=== PATIENT | female | born 1970 | race Hispanic/Latino ===

== ENCOUNTER 2023-09-25 21:46 | Emergency (ER) | payer BC ==
[~2023-09-25] VITALS: Ht 154.9 cm; Wt 79.4 kg
[2023-09-25] MEDS: ACETAMINOPHEN 500 MG TABLET PO ONE (22:30)
[2023-09-25 23:08] LABS: APPEARANCE,URINE CLOUDY (CLEAR); BILIRUBIN,URINE NEGATIVE (NEGATIVE); COLOR,URINE YELLOW (YELLOW); GLUCOSE, URINE (UA) NEGATIVE (NEGATIVE); KETONES,URINE NEGATIVE (NEGATIVE); LEUKOCYTE ESTERASE ,URINE 25 Leu/uL (NEGATIVE); NITRATE,URINE NEGATIVE (NEGATIVE); PROTEIN,URINE 100 mg/dL (NEGATIVE)
[2023-09-25 23:17] LABS: RAPID GROUP A STREP negative (NEGATIVE)
[2023-09-25 23:23] LABS: INFLUENZA TYPE A NEGATIVE FOR TYPE A (NEG); INFLUENZA TYPE B NEGATIVE FOR TYPE B (NEG); SARS-CoV-2, RNA, NAAT NEGATIVE SARS CoV-2 (NEGATIVE)
[2023-09-25 23:28] LABS: RBC,URINE 0-1 /HPF (0-1)
[2023-09-25 23:30] LABS: BACTERIA,URINE Rare /HPF (None Seen); SQUAMOUS EPITHELIAL CELL,UR Rare /HPF (0-2)
[2023-09-25 23:31] LABS: FINE GRANULAR CASTS,URINE 0-2 /LPF (None Seen)
[2023-09-25 23:34] LABS: BASOPHILS # (AUTO) 0.01 K/uL (0.00-0.20); BASOPHILS % (AUTO) 0.2 % (0.0-5.0); HEMATOCRIT 24.4 % (36-48); IMMATURE GRANULOCYTE ABSOLUTE 0.14 K/uL (0-1); LYMPHOCYTES # (AUTO) 0.6 K/uL (1.0-4.8); LYMPHOCYTES % (AUTO) 11.9 % (21.0-51.0); MEAN CORPUSCULAR VOLUME 51.8 fL (79-99); MONOCYTES # (AUTO) 0.2 K/uL (0.1-1.0); MONOCYTES % (AUTO) 4.3 % (3.0-13.0); NEUTROPHILS # (AUTO) 4.3 K/uL (1.8-7.7); PLATELET COUNT (AUTO) 110 K/uL (130-400); RED BLOOD CELL COUNT(AUTO) 4.71 MIL/uL (4.00-5.50); RED CELL DISTRIBUTION WIDTH 23.9 % (11.0-15.5); WHITE BLOOD COUNT (AUTO) 5.3 K/uL (4.8-10.8)
[2023-09-25 23:47] LABS: HCG,QUALITATIVE URINE NEGATIVE (NEGATIVE)
[2023-09-25 23:52] LABS: ALBUMIN 3.3 g/dL (3.5-5.0); BILIRUBIN,TOTAL 0.8 mg/dL (0.2-1.0); CREATININE 0.9 mg/dL (0.5-1.0); POTASSIUM 3.1 mmol/L (3.5-5.1); TOTAL PROTEIN, SERUM 7.1 g/dL (6.0-8.3)
[2023-09-26] MEDS: POTASSIUM BICARB/CIT AC 25 MEQ TABLET.EFF PO ONE (01:09)
[2023-09-26 07:00] LABS: HEMATOCRIT 29.1 % (36-48)
[2023-09-26 07:26] VITALS: BP 95/52; PULSE 102; RESP 18; O2SAT 99
[2023-09-26] MEDS ORDERED: CEPH500C2 PO (08:02)
[2023-09-26] MEDS ORDERED: ACET-66 PO (08:02)
[2023-09-26] MEDS ORDERED: FERR324T4 PO (08:02)
== END 2023-09-26 08:40 | disposition home or self-care (01) ==
LOC: EDH 21:46
DX: D64.9 Anemia, unspecified (principal); N39.0 Urinary tract infection, site not specified; Z20.822 Contact with and (suspected) exposure to COVID-19
CPT/HCPCS: 99285; 36430; 87635; 80053; 85025; 86850; 86900; 86901; 86923; 87040 ×2; 87088; 87880; 87804 ×2; 83605; 81001 ×2; 81025; 36415 ×2; 93005; 85014; 85018; P9016

== ENCOUNTER 2023-09-28 11:52 | Inpatient (IN) | payer BC ==
[~2023-09-28] VITALS: Ht 154.9 cm; Wt 87.1 kg
[~2023-09-28 11:52] MED LIST: ACET-66 PO; CEPH500C2 PO; FERR324T4 PO
[2023-09-28 12:46] LABS: BASOPHILS # (AUTO) 0.01 K/uL (0.00-0.20); BASOPHILS % (AUTO) 0.1 % (0.0-5.0); HEMATOCRIT 28.3 % (36-48); IMMATURE GRANULOCYTE ABSOLUTE 0.13 K/uL (0-1); LYMPHOCYTES % (AUTO) 12.1 % (21.0-51.0); MEAN CORPUSCULAR HEMOGLOBIN 15.6 pg (27.0-33.0); MEAN CORPUSCULAR HGB CONC 29.7 g/dL (32.0-36.0); MEAN CORPUSCULAR VOLUME 52.7 fL (79-99); MONOCYTES # (AUTO) 0.2 K/uL (0.1-1.0); NEUTROPHILS # (AUTO) 7.3 K/uL (1.8-7.7); NEUTROPHILS % (AUTO) 84.3 % (40.0-77.0); NUCLEATED RED BLOOD CELLS 0.2 % (0.0-0.19); PLATELET COUNT (AUTO) 88 K/uL (130-400); RED BLOOD CELL COUNT(AUTO) 5.37 MIL/uL (4.00-5.50); RED CELL DISTRIBUTION WIDTH 27.4 % (11.0-15.5); WHITE BLOOD COUNT (AUTO) 8.6 K/uL (4.8-10.8)
[2023-09-28] MEDS: MORPHINE 2 MG SYG IVP ONE (12:54)
[2023-09-28] MEDS: ONDANSETRON 4MG INJ IVP ONE (12:54)
[2023-09-28 12:55] LABS: INR 1.04 (0.85-1.15); PROTHROMBIN TIME 12.2 SEC (9.6-11.6)
[2023-09-28 12:56] LABS: CREATININE 1.5 mg/dL (0.5-1.0); PARTIAL THROMBOPLASTIN TIME 37.7 SEC (26.3-35.5); POTASSIUM 3.7 mmol/L (3.5-5.1)
[2023-09-28 13:00] LABS: ALBUMIN 2.7 g/dL (3.5-5.0); BILIRUBIN,TOTAL 2.6 mg/dL (0.2-1.0); TOTAL PROTEIN, SERUM 6.8 g/dL (6.0-8.3)
[2023-09-28] MEDS: 0.9%NACL 1000ML 1,000 ML IV SCH ×2 (14:03→19:54)
[2023-09-28] MEDS ORDERED: DOXYCYCLINE 100MG+NS 250ML 250 ML IV SCH (19:00)
[2023-09-28 19:25] LABS: % IRON SATURATION 3.7 % (22-44)
[2023-09-28] MEDS ORDERED: VANCOMYCIN PROTOCOL PER PHARMACY IV SCH (19:30)
[2023-09-28] MEDS ORDERED: RENAL DOSE IV SCH (19:30)
[2023-09-28 19:45] LABS: HIV 1&2 ANTIBODY Non-Reactive (Negative)
[2023-09-28 19:46] LABS: HIV-1 p24 Antigen Non-Reactive (Negative)
[2023-09-28 19:47] LABS: SARS-CoV-2, RNA, NAAT NEGATIVE SARS CoV-2 (NEGATIVE)
[2023-09-28 19:48] LABS: INFLUENZA TYPE A NEGATIVE FOR TYPE A (NEG)
[2023-09-28 19:49] LABS: INFLUENZA TYPE B NEGATIVE FOR TYPE B (NEG)
[2023-09-28] MEDS: PANTOPRAZOLE 40 MG/VIAL IVP SCH (19:53)
[2023-09-28] MEDS: CEFTRIAXONE 2GM VIAL IVPB SCH (19:54)
[2023-09-28] MEDS: THIAMINE HCL 100 MG/ML 2ML VIAL IVP SCH (19:54)
[2023-09-28] MEDS: DOXYCYCLINE 100MG+NS 250ML 250 ML IV SCH (19:54)
[2023-09-28] MEDS: VANCOMYCIN 1.5 GM/250 ML BAG 250 ML IV ONE (20:04)
[2023-09-28 20:09] LABS: AMPHET/METH SCREEN,URINE NEGATIVE (NEGATIVE); BARBITURATE SCREEN, URINE NEGATIVE (NEGATIVE); BENZODIAZEPINES SCREEN,URINE NEGATIVE (NEGATIVE); CANNABINOID SCREEN,URINE NEGATIVE (NEGATIVE); COCAINE SCREEN,URINE NEGATIVE (NEGATIVE); OPIATE SCREEN,URINE POSITIVE (NEGATIVE); PHENCYCLIDINE SCREEN,URINE NEGATIVE (NEGATIVE)
[2023-09-28 20:31] LABS: APPEARANCE,URINE CLOUDY (CLEAR); BILIRUBIN,URINE NEGATIVE (NEGATIVE); COLOR,URINE YELLOW (YELLOW); GLUCOSE, URINE (UA) NEGATIVE (NEGATIVE); KETONES,URINE NEGATIVE (NEGATIVE); LEUKOCYTE ESTERASE ,URINE NEGATIVE Leu/uL (NEGATIVE); NITRATE,URINE NEGATIVE (NEGATIVE); PH,URINE 5.5 (5.0-8.0); PROTEIN,URINE 30 mg/dL (NEGATIVE)
[2023-09-28 20:48] LABS: ADD UA MICROSCOPIC YES
[2023-09-28 20:55] LABS: BACTERIA,URINE RARE /HPF (None Seen); MUCUS,URINE RARE LPF (None Seen); SQUAMOUS EPITHELIAL CELL,UR RARE /HPF (0-2)
[2023-09-28] MEDS: 0.9%NACL 1000ML 1,000 ML IV ONE (21:45)
[2023-09-28] MEDS: MEROPENEM 1 GM in 0.9%NACL 100ML 100 ML IV SCH (22:00)
[2023-09-28] MEDS ORDERED: COMPOUND IV MISC 1 EACH IVSOLN MISC PRN (22:00)
[2023-09-28] MEDS: MORPHINE 2 MG SYG ONE (22:47)
[2023-09-28 23:35] LABS: GLUCOSE, CSF 58 mg/dL (40-70); TOTAL PROTEIN, CSF 27 mg/dL (15-45)
[2023-09-28 23:47] LABS: RED BLOOD CELL1,CSF 18 CMM (0-0); WHITE BLOOD CELL1,CSF 5 CMM (0-5)
[2023-09-28 23:54] LABS: APPEARANCE2,CSF CLEAR (CLEAR); COLOR2,CSF COLORLESS (COLORLESS); CSF 2ND TUBE NUMBER 4
[2023-09-28 23:55] LABS: APPEARANCE,CSF CLEAR (CLEAR); COLOR,CSF COLORLESS (COLORLESS); CSF TUBE NUMBER 1
[2023-09-29] VITALS (47 sets, daily range): BP systolic 104–144; BP diastolic 40–76; PULSE 104–113; RESP 22–63; O2SAT 98–100
[2023-09-29] MEDS: MEROPENEM 1 GM VIAL ONE (01:29)
[2023-09-29 04:07] LABS: CSF Streptococcus (Group B) Ag Negative; CSFStreptococcus pneumoniae Ag Negative
[2023-09-29 08:56] LABS: BASOPHILS # (AUTO) 0.01 K/uL (0.00-0.20); BASOPHILS % (AUTO) 0.1 % (0.0-5.0); HEMATOCRIT 24.4 % (36-48); IMMATURE GRANULOCYTE ABSOLUTE 0.15 K/uL (0-1); LYMPHOCYTES # (AUTO) 1.1 K/uL (1.0-4.8); LYMPHOCYTES % (AUTO) 12.9 % (21.0-51.0); MEAN CORPUSCULAR HEMOGLOBIN 15.3 pg (27.0-33.0); MEAN CORPUSCULAR HGB CONC 27.9 g/dL (32.0-36.0); MEAN CORPUSCULAR VOLUME 54.8 fL (79-99); MONOCYTES # (AUTO) 0.2 K/uL (0.1-1.0); MONOCYTES % (AUTO) 2.5 % (3.0-13.0); NEUTROPHILS # (AUTO) 6.7 K/uL (1.8-7.7); NEUTROPHILS % (AUTO) 82.7 % (40.0-77.0); PLATELET COUNT (AUTO) 76 K/uL (130-400); RED BLOOD CELL COUNT(AUTO) 4.45 MIL/uL (4.00-5.50); RED CELL DISTRIBUTION WIDTH 27.2 % (11.0-15.5); WHITE BLOOD COUNT (AUTO) 8.1 K/uL (4.8-10.8)
[2023-09-29 09:09] LABS: BILIRUBIN,TOTAL 1.8 mg/dL (0.2-1.0); CREATININE 0.9 mg/dL (0.5-1.0); MAGNESIUM 2.2 mg/dL (1.80-2.40); POTASSIUM 3.6 mmol/L (3.5-5.1); TOTAL PROTEIN, SERUM 5.3 g/dL (6.0-8.3)
[2023-09-29 10:18] LABS: BAND NEUTROPHILS % (MANUAL) 28 % (0-2); LYMPHOCYTES % (MANUAL) 7 % (22-44); MAN.DIFF COMMENT-IMPRESSION MANUAL DIFFERENTIAL; PLATELET MORPHOLOGY COMMENT DECREASED; SEGMENTED NEUTROPHILS % 65 % (40-70); TOTAL CELLS COUNTED 100; WBC MORPHOLOGY CONSISTENT W/DIFF
[2023-09-29 11:38] LABS: ABG BASE EXCESS -6.9 mmol/L (-2.0-3.0); ABG HCO3 17.5 mmol/L (21.0-28.0); ABG OXYGEN SATURATION 80.5 % (95.0-99.0); ABG PCO2 31 mmHg (32-45); ABG PH 7.375 (7.35-7.450); CARBON MONOXIDE 0.3; DEVICE COMMENT RN MARTA LR; HHb 19.3; PO2, ARTERIAL BG 51.2 mmHg (83.0-108.0); VENT MODE, BG NC (ROOM AIR)
[2023-09-29 12:04] LABS: INR 1.05 (0.85-1.15); PROTHROMBIN TIME 12.3 SEC (9.6-11.6)
[2023-09-29 12:05] LABS: PARTIAL THROMBOPLASTIN TIME 40.5 SEC (26.3-35.5)
[2023-09-29] MEDS: SODIUM BICARBONATE 650 MG TAB PO SCH (12:10)
[2023-09-29] MEDS ORDERED: IOHEXOL 350 MG/ML 100ML INFUS..BTL IV ONE (16:04)
[2023-09-29] MEDS: VANCOMYCIN 1G/250ML KIT 250 ML IV SCH (19:18)
[2023-09-29 20:55] LABS: HEMATOCRIT 27.6 % (36-48)
[2023-09-29] MEDS: TEMAZEPAM 15 MG CAPSULE PO PRN (23:29)
[2023-09-30] VITALS (24 sets, daily range): BP systolic 112–126; BP diastolic 48–68; PULSE 98–124; RESP 18–60; O2SAT 95–98
[2023-09-30 02:03] LABS: HEMATOCRIT 27.3 % (36-48); MEAN CORPUSCULAR HGB CONC 29.3 g/dL (32.0-36.0); MEAN CORPUSCULAR VOLUME 58.1 fL (79-99); PLATELET COUNT (AUTO) 89 K/uL (130-400); WHITE BLOOD COUNT (AUTO) 8.2 K/uL (4.8-10.8)
[2023-09-30 02:15] LABS: ALBUMIN 1.8 g/dL (3.5-5.0); BILIRUBIN,TOTAL 1.5 mg/dL (0.2-1.0); CREATININE 0.7 mg/dL (0.5-1.0); MAGNESIUM 2.2 mg/dL (1.80-2.40); POTASSIUM 3.7 mmol/L (3.5-5.1); TOTAL PROTEIN, SERUM 5.1 g/dL (6.0-8.3)
[2023-09-30 08:46] LABS: HEMATOCRIT 26.1 % (36-48)
[2023-09-30 16:01] LABS: HEMATOCRIT 27.7 % (36-48)
[2023-10-01] VITALS (9 sets, daily range): BP systolic 105–144; BP diastolic 56–66; PULSE 91–106; RESP 18–22; O2SAT 100
[2023-10-01 06:20] LABS: BASOPHILS # (AUTO) 0.02 K/uL (0.00-0.20); BASOPHILS % (AUTO) 0.3 % (0.0-5.0); EOSINOPHILS % (AUTO) 1.6 % (0.0-8.0); HEMATOCRIT 25.6 % (36-48); IMMATURE GRANULOCYTE ABSOLUTE 0.16 K/uL (0-1); LYMPHOCYTES # (AUTO) 1.7 K/uL (1.0-4.8); LYMPHOCYTES % (AUTO) 26.9 % (21.0-51.0); MEAN CORPUSCULAR HEMOGLOBIN 16.6 pg (27.0-33.0); MEAN CORPUSCULAR HGB CONC 28.9 g/dL (32.0-36.0); MEAN CORPUSCULAR VOLUME 57.4 fL (79-99); MONOCYTES # (AUTO) 0.3 K/uL (0.1-1.0); MONOCYTES % (AUTO) 4.9 % (3.0-13.0); NEUTROPHILS # (AUTO) 4.1 K/uL (1.8-7.7); NEUTROPHILS % (AUTO) 63.8 % (40.0-77.0); NUCLEATED RED BLOOD CELLS 0.3 % (0.0-0.19); PLATELET COUNT (AUTO) 126 K/uL (130-400); RED BLOOD CELL COUNT(AUTO) 4.46 MIL/uL (4.00-5.50); RED CELL DISTRIBUTION WIDTH 30.7 % (11.0-15.5); WHITE BLOOD COUNT (AUTO) 6.4 K/uL (4.8-10.8)
[2023-10-01 06:26] LABS: ALBUMIN 1.7 g/dL (3.5-5.0); BILIRUBIN,TOTAL 0.9 mg/dL (0.2-1.0); CREATININE 0.6 mg/dL (0.5-1.0); POTASSIUM 3.2 mmol/L (3.5-5.1)
[2023-10-01 06:28] LABS: INR 1.08 (0.85-1.15); PROTHROMBIN TIME 12.7 SEC (9.6-11.6)
[2023-10-01 06:29] LABS: PARTIAL THROMBOPLASTIN TIME 33.5 SEC (26.3-35.5)
[2023-10-01] MEDS ORDERED: POTASSIUM CHLORIDE 20MEQ/100ML 100 ML IV PRN (07:00)
[2023-10-01] MEDS: VANCOMYCIN 2GM/500 ML BAG 500 ML IV ONE (08:24)
[2023-10-01] MEDS: VANCOMYCIN 1.25 GM/250 ML BAG 250 ML IV SCH (20:02)
[2023-10-01] MEDS: KCL 20 MEQ ERTAB PO PRN (20:03)
[2023-10-01] MEDS: POTASSIUM CHLORIDE 10% ELIXIR 20 MEQ/15 ML UDCUP PO PRN (23:12)
[2023-10-02] VITALS (15 sets, daily range): BP systolic 120–161; BP diastolic 56–86; PULSE 82–107; RESP 16–20; O2SAT 95–99
[2023-10-02 04:03] LABS: CREATININE 0.6 mg/dL (0.5-1.0); MAGNESIUM 1.6 mg/dL (1.80-2.40); POTASSIUM 3.4 mmol/L (3.5-5.1)
[2023-10-02 04:27] LABS: HEMATOCRIT 24.5 % (36-48); MEAN CORPUSCULAR HEMOGLOBIN 16.8 pg (27.0-33.0); MEAN CORPUSCULAR VOLUME 58.1 fL (79-99); PLATELET COUNT (AUTO) 119 K/uL (130-400); RED BLOOD CELL COUNT(AUTO) 4.22 MIL/uL (4.00-5.50); RED CELL DISTRIBUTION WIDTH 30.9 % (11.0-15.5); WHITE BLOOD COUNT (AUTO) 6.6 K/uL (4.8-10.8)
[2023-10-02] MEDS: MAGNESIUM 2GM PREMIX 50ML 50 ML IV PRN (04:33)
[2023-10-02] MEDS: POTASSIUM CHLORIDE 10MEQ/100ML 100 ML IV PRN (06:32)
[2023-10-02] MEDS ORDERED: IOHEXOL-350 50ML VIAL IV ONE (10:19)
[2023-10-02] MEDS ORDERED: LIDOCAINE HCL 1% MDV 50ML VIAL ONE (10:19)
[2023-10-02] MEDS ORDERED: MAGNESIUM 2GM PREMIX 50ML 50 ML IV SCH (13:00)
[2023-10-02] MEDS: KCL 20 MEQ ERTAB PO ONE (13:54)
[2023-10-02 15:20] LABS: BASOPHILS # (AUTO) 0.02 K/uL (0.00-0.20); BASOPHILS % (AUTO) 0.4 % (0.0-5.0); EOSINOPHILS # (AUTO) 0.13 K/uL (0.00-0.70); EOSINOPHILS % (AUTO) 2.4 % (0.0-8.0); HEMATOCRIT 26.9 % (36-48); LYMPHOCYTES # (AUTO) 2.5 K/uL (1.0-4.8); LYMPHOCYTES % (AUTO) 45.9 % (21.0-51.0); MEAN CORPUSCULAR VOLUME 58.7 fL (79-99); MONOCYTES # (AUTO) 0.3 K/uL (0.1-1.0); MONOCYTES % (AUTO) 6.2 % (3.0-13.0); NEUTROPHILS # (AUTO) 2.2 K/uL (1.8-7.7); NEUTROPHILS % (AUTO) 41.4 % (40.0-77.0); PLATELET COUNT (AUTO) 261 K/uL (130-400); RED BLOOD CELL COUNT(AUTO) 4.58 MIL/uL (4.00-5.50); WHITE BLOOD COUNT (AUTO) 5.4 K/uL (4.8-10.8)
[2023-10-02 20:09] LABS: CRYPTOCOCCUS ANTIGEN, CSF Negative (Negative)
[2023-10-03] VITALS (7 sets, daily range): BP systolic 125–159; BP diastolic 67–99; PULSE 86–95; RESP 16–18; O2SAT 99
[2023-10-03 01:10] LABS: DENGUE IGG ANTIBODY 1.41 ISR (<1.65); DENGUE IGM ANTIBODY <1.00 ISR (<1.65)
[2023-10-03 03:59] LABS: HEMATOCRIT 25.3 % (36-48); MEAN CORPUSCULAR HEMOGLOBIN 16.5 pg (27.0-33.0); MEAN CORPUSCULAR HGB CONC 28.1 g/dL (32.0-36.0); MEAN CORPUSCULAR VOLUME 58.7 fL (79-99); PLATELET COUNT (AUTO) 289 K/uL (130-400); RED BLOOD CELL COUNT(AUTO) 4.31 MIL/uL (4.00-5.50); RED CELL DISTRIBUTION WIDTH 31.5 % (11.0-15.5); WHITE BLOOD COUNT (AUTO) 5.5 K/uL (4.8-10.8)
[2023-10-03 04:21] LABS: ALBUMIN 1.8 g/dL (3.5-5.0); BILIRUBIN,TOTAL 0.5 mg/dL (0.2-1.0); CREATININE 0.5 mg/dL (0.5-1.0); MAGNESIUM 2.2 mg/dL (1.80-2.40); POTASSIUM 3.6 mmol/L (3.5-5.1); TOTAL PROTEIN, SERUM 5.6 g/dL (6.0-8.3)
[2023-10-03 13:09] LABS: HEMATOCRIT 28.1 % (36-48); MEAN CORPUSCULAR HEMOGLOBIN 16.8 pg (27.0-33.0); MEAN CORPUSCULAR HGB CONC 28.5 g/dL (32.0-36.0); MEAN CORPUSCULAR VOLUME 58.9 fL (79-99); PLATELET COUNT (AUTO) 360 K/uL (130-400); RED BLOOD CELL COUNT(AUTO) 4.77 MIL/uL (4.00-5.50); RED CELL DISTRIBUTION WIDTH 31.9 % (11.0-15.5); WHITE BLOOD COUNT (AUTO) 5.7 K/uL (4.8-10.8)
[2023-10-03 20:03] LABS: HEMATOCRIT 27.6 % (36-48); MEAN CORPUSCULAR HEMOGLOBIN 16.7 pg (27.0-33.0); MEAN CORPUSCULAR HGB CONC 28.3 g/dL (32.0-36.0); MEAN CORPUSCULAR VOLUME 59.2 fL (79-99); NUCLEATED RED BLOOD CELLS 0.6 % (0.0-0.19); PLATELET COUNT (AUTO) 228 K/uL (130-400); RED BLOOD CELL COUNT(AUTO) 4.66 MIL/uL (4.00-5.50); RED CELL DISTRIBUTION WIDTH 32.4 % (11.0-15.5)
[2023-10-04 00:04] VITALS: BP 135/71; PULSE 85; RESP 18
[2023-10-04 04:19] VITALS: BP 141/74; PULSE 97; RESP 18
[2023-10-04 04:55] LABS: HEMATOCRIT 24.9 % (36-48); MEAN CORPUSCULAR HEMOGLOBIN 16.7 pg (27.0-33.0); MEAN CORPUSCULAR HGB CONC 28.5 g/dL (32.0-36.0); MEAN CORPUSCULAR VOLUME 58.6 fL (79-99); PLATELET COUNT (AUTO) 370 K/uL (130-400); RED BLOOD CELL COUNT(AUTO) 4.25 MIL/uL (4.00-5.50); RED CELL DISTRIBUTION WIDTH 32.1 % (11.0-15.5); WHITE BLOOD COUNT (AUTO) 5.1 K/uL (4.8-10.8)
[2023-10-04 05:35] LABS: ALBUMIN 1.9 g/dL (3.5-5.0); BILIRUBIN,TOTAL 0.5 mg/dL (0.2-1.0); CREATININE 0.5 mg/dL (0.5-1.0); MAGNESIUM 1.9 mg/dL (1.80-2.40); POTASSIUM 3.3 mmol/L (3.5-5.1); TOTAL PROTEIN, SERUM 5.9 g/dL (6.0-8.3)
[2023-10-04 07:45] VITALS: O2SAT 99
[2023-10-04 08:00] VITALS: BP 133/77; PULSE 88; RESP 16
[2023-10-04] MEDS: VANCOMYCIN 1.5 GM/250 ML BAG 250 ML IV SCH (09:15)
[2023-10-04 11:06] LABS: RUBEOLA (MEASLES) IGM CSF 0.42
[2023-10-04 11:07] LABS: MUMPS VIRUS IGG ANTIBODY CSF <5.0; MUMPS VIRUS IGM ANTIBODY CSF 0.19
[2023-10-04 11:08] LABS: VARICELLA IGG ANTIBODY CSF <10.0
[2023-10-04 11:10] LABS: HSV 1/2 COMBINED AB IGG CSF 0.69; WEST NILE VIRUS IGG CSF 0.05
[2023-10-04 11:53] VITALS: BP 136/71; PULSE 84; RESP 16
[2023-10-04] MEDS ORDERED: DOXY100C5 PO (13:51)
[2023-10-04] MEDS ORDERED: METO25TA6 PO (15:37)
[2023-10-04] MEDS ORDERED: FURO20TA6 PO (15:37)
[2023-10-04] MEDS ORDERED: LISI20TA24 PO (15:37)
[2023-10-05 23:08] LABS: SPOTTED FEVER GROUP IGG <1:64 (Neg:<1:64); SPOTTED FEVER GROUP IGM <1:64 (Neg:<1:64)
== END 2023-10-04 17:35 | disposition home or self-care (01) | DRG 871 ==
LOC: EDH 11:52 → EDHIP 18:44 → 2DH 09-29 08:03 → 2CV 09-29 13:28 → 2CH 09-29 15:08 → 2DH 09-30 18:51
PROVIDERS: ADMIT Internal Medicine; ATTEND Internal Medicine
PROC: 30233N1 Transfusion of Nonautologous Red Blood Cells into Peripheral Vein, Percutaneous Approach (ICD-10-PCS; 2023-09-29)
PROC: 02HV33Z Insertion of Infusion Device into Superior Vena Cava, Percutaneous Approach (ICD-10-PCS; 2023-09-29)
PROC: B548ZZA Ultrasonography of Superior Vena Cava, Guidance (ICD-10-PCS; 2023-09-29)
PROC: 06H03DZ Insertion of Intraluminal Device into Inferior Vena Cava, Percutaneous Approach (ICD-10-PCS; principal; 2023-10-02)
PROC: B5191ZZ Fluoroscopy of Inferior Vena Cava using Low Osmolar Contrast (ICD-10-PCS; 2023-10-02)
DX: A41.9 Sepsis, unspecified organism (principal); I50.31 Acute diastolic (congestive) heart failure; N17.0 Acute kidney failure with tubular necrosis; R65.21 Severe sepsis with septic shock; B17.9 Acute viral hepatitis, unspecified; K80.10 Calculus of gallbladder with chronic cholecystitis without obstruction; E44.0 Moderate protein-calorie malnutrition; D62 Acute posthemorrhagic anemia; E87.20 Acidosis, unspecified; I82.411 Acute embolism and thrombosis of right femoral vein; I82.611 Acute embolism and thrombosis of superficial veins of right upper extremity; I82.621 Acute embolism and thrombosis of deep veins of right upper extremity; I82.811 Embolism and thrombosis of superficial veins of right lower extremity; A75.9 Typhus fever, unspecified; Z20.822 Contact with and (suspected) exposure to COVID-19; D69.6 Thrombocytopenia, unspecified; E86.0 Dehydration; E86.1 Hypovolemia; R16.2 Hepatomegaly with splenomegaly, not elsewhere classified; R73.9 Hyperglycemia, unspecified; E66.9 Obesity, unspecified; K82.8 Other specified diseases of gallbladder; M43.6 Torticollis; N92.1 Excessive and frequent menstruation with irregular cycle; Z79.899 Other long term (current) drug therapy; Z68.36 Body mass index [BMI] 36.0-36.9, adult; B96.4 Proteus (mirabilis) (morganii) as the cause of diseases classified elsewhere
CPT/HCPCS: 36415; 36600; 37191; 70450; 71045; 71270; 74176; 76705; 76856; 78226; 80048; 80053; 80074; 80202; 80305; 81001; 82140; 82435; 82728; 82803; 82945; 82947; 83010; 83540; 83550; 83605; 83615; 83690; 83735; 84132; 84145; 84157; 84295; 84703; 85014; 85018; 85025; 85027; 85378; 85610; 85651; 85730; 86000; 86038; 86140; 86215; 86235; 86308; 86592; 86641; 86644; 86645; 86665; 86694; 86701; 86735; 86757; 86765; 86787; 86788; 86850; 86900; 86901; 86923; 87040; 87071; 87147; 87205; 87210; 87252; 87390; 87449; 87483; 87529; 87635; 87804; 87899; 89051; 93306; 93356; 93970; 93971; 96375; 96376; 99291; A9537; C1751; C1769; C1894; C9113; G0378; J0696; J1644; J2185; J2270; J2405; J3370; J3411; J3475; J3480; J3490; J7030; P9016; Q9967; 3370; C1880

== ENCOUNTER → 2024-02-20 | Outpatient (CLI) | payer BC ==
[~2024-02-20] VITALS: Ht 156.2 cm; Wt 77.9 kg
[~2024-02-20] MED LIST changes: -CEPH500C2 PO; +DOXY100C5 PO; +FURO20TA6 PO; +LISI20TA24 PO; +METO25TA6 PO
[2024-02-20 09:11] LABS: BASOPHILS # (AUTO) 0.01 K/uL (0.00-0.20); BASOPHILS % (AUTO) 0.2 % (0.0-5.0); EOSINOPHILS # (AUTO) 0.11 K/uL (0.00-0.70); EOSINOPHILS % (AUTO) 2.6 % (0.0-8.0); HEMATOCRIT 44.5 % (36-48); IMMATURE GRANULOCYTE ABSOLUTE 0.01 K/uL (0-1); LYMPHOCYTES # (AUTO) 1.4 K/uL (1.0-4.8); LYMPHOCYTES % (AUTO) 31.5 % (21.0-51.0); MEAN CORPUSCULAR VOLUME 80.8 fL (79-99); MONOCYTES # (AUTO) 0.3 K/uL (0.1-1.0); NEUTROPHILS # (AUTO) 2.5 K/uL (1.8-7.7); NEUTROPHILS % (AUTO) 58.5 % (40.0-77.0); PLATELET COUNT (AUTO) 207 K/uL (130-400); RED BLOOD CELL COUNT(AUTO) 5.51 MIL/uL (4.00-5.50); WHITE BLOOD COUNT (AUTO) 4.3 K/uL (4.8-10.8)
[2024-02-20 09:18] LABS: CREATININE 0.6 mg/dL (0.5-1.0); POTASSIUM 5.3 mmol/L (3.5-5.1)
[2024-02-20 09:21] LABS: INR 0.94 (0.85-1.15); PROTHROMBIN TIME 10.2 SEC (9.6-11.6)
[2024-02-20 09:39] VITALS: BP 110/61; PULSE 67; RESP 17; TEMP 97.3
== END | disposition home or self-care (01) ==
LOC: EDSTATUS 08:00 → DAH 10:00
PROVIDERS: ATTEND Internal Medicine Hematology & Oncology
DX: Z45.89 Encounter for adjustment and management of other implanted devices (principal); Z79.01 Long term (current) use of anticoagulants; Z53.8 Procedure and treatment not carried out for other reasons
CPT/HCPCS: 36415; 80048; 84703; 85025; 85610; 85730